=== PATIENT | male | born 1990 | race Caucasian/White ===

== ENCOUNTER 2016-06-21 12:13 | Inpatient (IN) | payer MEDICAID ==
[~2016-06-21] VITALS: Ht 180.3 cm; Wt 61.9 kg
[~2016-06-21 12:13] MED LIST: AUGMENTIN1 TA2 PO; AURALGAN OT10 ML/BOT OT; BACTRIM DS 8001 TAB PO; CIPRO 500MG TA500 MG PO; CLARITIN 10MG T10 MG PO; CORTISPORIN OTI10 M1 OT; HYDROCODONE1 TABLET PO; IBUPROFEN800 MG PO; LORTAB 5/500 501 TAB PO; MOTRIN 600MG.600 MG PO; NAPROSYN 500MG500 MG PO; NOMEDS *; NOMEDS XX; NORCO 325 MG-51 TAB PO; PRILOSEC OTC20 MG PO; PYRIDIUM 200MG200 MG PO; STRATTERA10 MG PO; TYLENOL ES500 MG PO; TYLENOL W/CODEI1 TA2 PO; TYLENOL WITH CO1 TA1 PO
[2016-06-21 12:19] VITALS: BP 131/69
--- NOTE | 2016-06-21 13:10 | Emergency Room Report ---
History of Present Illness Time Seen by MD Roca Presenting Problem in Triage Pt arrived:Wheelchair Presenting Problem:REPORTS HE HAD A SORE AREA ON HIS R LEG ON THE , AND NOW HE REPORTS A HARD KNOT THAT IS REDENNED AND INFLAMMED. REPORTS THAT IT HURTS TO WALK Onset of symptoms date/time:/ or onset unknown for:MEDICAL HX UNKNOWN Treatment Prior to Arrival: LICENSED APPRAISER Provided by: Sepsis Risk Assessment: Temp: 98.2 B/P: 131/69 MAP: 89 Pulse: 109 Resp: 20 Recent fever? N Clinical Suspician of Infection? N Mental Status: 1 - Regular (Normal Baseline) Sepsis Risk:Low Sepsis Risk Have you (or family members/close friends) recently traveled outside the [place]? N If Yes, where/when: Have you had exposure to infectious disease within the past month? N TB? Other? Specify: Comment The patient complains of RIGHT thigh pain, firmness, and swelling for about 5 days. He says the past 2 days he ran a fever of 101 degrees. No redness. The swelling is now beginning to extend down to the distal thigh above his knee. He denies trauma or injury or unusual activity. No previous similar symptoms. ALLERGIES Coded Allergies: cefaclor (From [facility]) (06/03/15) Home Medications Reported Medications No Known Home Medications History Medical History General CAD? No Angina: Yes SC: No Hypertension? No Hyperlipidemia? Yes CHF? No DVT? No PE? No COPD? No Asthma? No Anemia? No GERD? No Gastric ulcers? No GI Bleed? No Hernia? No Thyroid Problems? No Hypothyroidism? No CVA? No Seizures? No Diabetes? No Renal Insuffiency? No End Stage Renal Disease? No UTI? No Stones? No BPH? No GB Disease: No Nephritic Syndrome? No Asplenia? No Hepatitis? No Sickle Cell Disease? No Arthritis? No Migraines? No Cataracts? No Glaucoma? No MRSA? Yes HIV? No TB? No Anxiety? No Depression? No Cancer? No More? No Immunization Hx DT/Tetanus 1-4 YRS Surgical Hx Previous Surgery?Y TONSILLECTOMY I&D OF ARM PIT STAPH Social History Smoking Hx Smoker: Current Every Day Smoker Tobacco: Yes Type Cigarettes Packs/day < 1 Pack Alcohol Alcohol: No Review of Systems All Other Systems Reviewed and Negative Constitutional fever Musculoskeletal see HPI Physical Exam Vital Signs Vital Signs Date Time Temp Pulse Resp B/P Pulse O2 O2 Flow FiO2 Ox Delivery Rate 06/21 1551 18 06/21 1551 98.5 89 18 115/77 96 06/21 1519 98.5 89 20 115/77 96 06/21 1417 98.2 100 18 133/79 96 06/21 1333 108 18 126/69 97 06/21 1322 18 06/21 1221 98.2 109 20 131/69 99 06/21 1219 98.1 104 16 131/69 96 General Appearance normal appearance Eye Exam - bilateral eye normal exam, bilateral eye PERRL, bilateral eye EOMI Ear, Nose, Throat hearing grossly normal, normal ENT inspection Neck normal inspection, non-tender, supple, full range of motion Respiratory Status No: respiratory distress. Lung Sounds bilateral: normal breath sounds, lungs clear. Cardiovascular normal peripheral pulses Peripheral Pulses Pulses normal Yes Gastrointestinal normal bowel sounds, normal exam, non tender, soft, no organomegaly Back normal inspection, no CVA tenderness, no vertebral tenderness Extremities tenderness of RIGHT thigh, predominantly mid to proximal. The tenderness is lateral in this area is firm to touch in his RIGHT thigh is enlarged compared to the LEFT. No discrete mass. No fluctuance. No erythema., dorsalis pedis pulse 2+. Normal sensory and motor distally., no effusion or tenderness of the knee joint. Neurologic alert Reflexes Reflexes normal Yes Mental status normal mood/affect Skin intact, normal color, warm/dry Medical Decision Making LABS/Meds/Orders Pt receiving controlled substance in ED? No Results/Orders Laboratory Tests 06/21/16 1330: Sodium 138, Potassium 3.8, Chloride 102, Carbon Dioxide 30, BUN 5 L, Creatinine 0.7 L, Estimated Creat Clear 145, Estimated GFR (MDRD) 137, Glucose 87, Calcium 9.0, Total Bilirubin 0.6, AST 20, ALT 16, Alkaline Phosphatase 95, Total Protein 8.3 H, Albumin 3.5, Globulin 4.8 H, Albumin/Globulin Ratio 0.7 L, D-Dimer 638 *H, WBC 13.3 H, RBC 4.68, Hgb 14.4, Hct 42.4, MCV 90.6, RDW 13.1, Plt Count 218 , MPV 8.5, Gran % 69.4, Gran # 9.2 H, Lymphocytes % 22.7, Monocytes % 5.5, Eosinophils % 1.8, Basophils % 0.5, Lymphocytes # 3.0, Monocytes # 0.7, Eosinophils # 0.2, Basophils # 0.1, PUBS MCHC 33.9, MCH 30.7 Current Medication Orders Sig/Heri Start time Last Medication Dose Route Stop Time Status Admin Morphine Sulfate 0 .STK-MED ONE 06/21 1550 DC .ROUTE Clindamycin Phosphate 600 MG Q6H 06/21 1545 UNV Sodium Chloride 100 ML IV Influenza Virus 0.5 ML PRN PRN 06/21 1545 UNV Vaccine Quadrival IM Iopamidol 100 ML ONCE ONE 06/21 1545 UNV 06/21 IV 06/21 1546 1535 Iopamidol 20 ML ONCE ONE 06/21 1545 UNV 06/21 IV 06/21 1546 1535 Miscellaneous 1 EACH CONSULT PHARMACY 06/21 1545 UNV 06/21 Information * 06/22 0341 1609 Morphine Sulfate 2 MG Q2HP PRN 06/21 1545 UNV IV Morphine Sulfate 4 MG ONCE ONE 06/21 1545 DC 06/21 IV 06/21 1546 1551 Nicotine 21 MG DAILYP PRN 06/21 1545 UNV TD Ondansetron HCl 4 MG Q6HP PRN 06/21 1545 UNV IV Ondansetron HCl 4 MG ONCE ONE 06/21 1545 DC 06/21 IV 06/21 1546 1551 Sodium Chloride 20 ML ONCE ONE 06/21 1545 UNV 06/21 IV 06/21 1546 1535 Sodium Chloride 20 ML ONCE ONE 06/21 1545 UNV 06/21 IV 06/21 1546 1535 Sodium Chloride 10 ML PRN PRN 06/21 1545 UNV 06/21 IV 06/21 1705 1535 Sodium Chloride 10 ML PRN PRN 06/21 1545 UNV IV Vancomycin HCl 1,500 MG ONCE ONE 06/21 1545 CKDr 06/21 Sodium Chloride 250 ML IV 06/21 1744 1539 Sodium Chloride 250 ML .STK-MED ONE 06/21 1536 DC IV Vancomycin HCl 0 .STK-MED ONE 06/21 1535 DC .ROUTE Clindamycin Phosphate 600 MG ONCE ONE 06/21 1530 AC 06/21 Sodium Chloride 100 ML IV 06/21 1631 1528 Miscellaneous 1 EACH CONSULT PHARMACY 06/21 1530 AC 06/21 Information * 06/22 0316 1537 Clindamycin Phosphate 0 .STK-MED ONE 06/21 1524 DC .ROUTE Sodium Chloride 100 ML .STK-MED ONE 06/21 1524 DC IV Ketorolac 0 .STK-MED ONE 06/21 1335 DC Tromethamine .ROUTE Ketorolac 30 MG ONCE ONE 06/21 1315 DC 06/21 Tromethamine IV 06/21 1316 1322 Sodium Chloride 10 ML PRN PRN 06/21 1315 AC IV 06/22 1314 Orders Procedure Date/time Status DIET-REGULAR ( TOLERATED) 06/21 D Active PHARMACIST CONSULT 06/21 1541 Active Decision to admit 06/[address] SCAN REQ 06/21 1315 Complete IV SALINE LOCK 06/21 1315 Active CULTURE, BLOOD 06/21 1315 Active LACTIC ACID 06/21 1315 Active D-DIMER 06/21 1315 Complete CBC WITH AUTO DIFF 06/21 1315 Complete CHEM 12 PROFILE 06/21 1315 Complete ADMIT PATIENT 06/21 UNK Active VITAL SIGNS 06/21 UNK Active POM NURSE ARMANDO OLSONValentina ORDER 06/21 UNK Active IV SALINE LOCK 06/21 UNK Active GEN NSG/PT REQ (NOT FOR MEDS!) 06/21 UNK Active CODE STATUS 06/21 UNK Active PATIENT ACTIVITY ORDER 06/21 UNK Active XRAY/CT/US XRAY/CT/US CT RIGHT thigh CT interpretation by discussed w/radiologist Comment 2.58 cm fluid density enhancing mass in the RIGHT thigh between the vastus lateralis muscle and the femur, probable abscess. Progress - 3:15 PM: Case discussed with Dr. Mortensen. He will admit. Intravenous vancomycin and clindamycin. Departure Departure Disposition Still a Patient Clinical Impression Primary Impression: Abscess of right thigh Condition STABLE Referrals Sloan RAY,Damon Payne (Family) Prescriptions Current Visit Scripts No Known Home Medications ED Critical Care Critical Care No at 1610
[2016-06-21 13:43] LABS: HEMOGLOBIN 14.4 g/dL (14.1-18.0); LYMPH % 22.7 % (10-50)
--- NOTE | 2016-06-21 16:04 | RADIOLOGY REPORT PS360 ---
[id number]/CONTRAST COMPARISON: None HISTORY: Pain and swelling right thigh, fever, no trauma TECHNIQUE: Multiple axial scans of the right thigh were obtained following injection of IV contrast. Sagittal and coronal reformatted images were evaluated as well. FINDINGS: There is hypodense lesion in the mid thigh sitting just inside the vastus lateralis muscle measuring 8.1 cm x 2.5 cm and showing a prominently enhancing rim. The CT number is 21 consistent with almost surely an abscess. There is no periosteal reaction of the adjacent femur. The remainder of the muscular anatomy of the thigh is unremarkable. IMPRESSION: Probable abscess deep within the mid thigh as noted, suggest clinical correlation for possibly IV drug use.
[2016-06-21 16:20] VITALS: BP 117/68
[2016-06-21 16:21] VITALS: BP 117/68
[2016-06-21 19:54] VITALS: BP 146/69
[2016-06-21 21:42] VITALS: BP 146/69
[2016-06-22 04:33] VITALS: BP 111/66
--- NOTE | 2016-06-22 07:13 | PHARMACY CLINIC NOTE ---
Patient Demographics Patient Demographics Admission date: 06/21/16 Date: 06/22/16 Time: 0712 Allergies Coded Allergies: cefaclor (From [facility]) (06/03/15) HEIGHT- FT: 5 IN: 11.00 K.859 VTE General Information Labs: Laboratory Tests 06/21 1330 Hematology Hgb (14.1 - 18.0 g/dL) 14.4 Hct (42.0 - 52.0 %) 42.4 Plt Count (142 - 424 K/mm3) 218 Disclaimer The following section includes nursing documentation that has been pulled in for pharmacy review. Patient's VTE score: 1 Patient's VTE Risk: VERY LOW RISK Clinical trial participant? No VTE prophylaxis [id number] VTE prophylaxis ordered? Yes Type of prophylaxis/treatment: ARMANDO at 0713
[2016-06-22 08:07] VITALS: BP 108/60
--- NOTE | 2016-06-22 08:16 | ACUTE CARE PROGRESS NOTE (QUA) ---
Progress note: - See H&P at 0893
--- NOTE | 2016-06-22 08:16 | ACUTE CARE PROGRESS NOTE (QUA) ---
Progress note: - See H&P at 0845
--- NOTE | 2016-06-22 08:16 | HISTORY AND PHYSICAL REPORT ---
History of Present Illness Chief Complaint: Tender RIGHT leg History of Present Illness: Patient is a 26-year-old white male. He presented to the emergency department yesterday afternoon with approximately 4 day history of swelling and tender RIGHT thigh. Patient describes some subjective fevers. He does state that a couple of months ago he may have struck the area on furniture sustaining minor trauma. Physical examination in the emergency department was rather unimpressive. He therefore underwent CT scan. This revealed findings of deep thigh abscess. Surgery was contacted. Plan was made for admission and intravenous antibiotics with possible plan for surgical drainage. Past Medical History Denies: CAD, diabetes mellitus. Surgical History Previous Surgery?Y TONSILLECTOMY I&D OF ARM PIT STAPH Allergies Coded Allergies: [facility] ([facility] (06/03/15) Medications: Reported Medications No Known Home Medications Smoking Hx Tobacco: Yes Smoker: Current Every Day Smoker Type: Cigarettes Packs/day: < 1 Pack Are you/the child exposed to second-hand smoke: Yes Alcohol Alcohol: No Hx of Drug Use Drug Use? No Review of Systems Constitutional Positive for: chills. Skin No: ecchymosis. Immune/allergy Positive for: allergy. Eyes No: vision loss. ENT No: hearing loss. Respiratory No: shortness of air. Cardiovascular No: chest pain. GI No: abdomen. (male) No: hematuria. Musculoskeletal Positive for: extremity pain, extremity swelling. Heme No: bleeding. Endocrine No: dyspnea. Neurological No: seizure. Psychiatric No: agitation. Physical Exam Exam General appearance no acute distress Respiratory clear to auscultation Cardiovascular normal heart sounds Extremities edema, warm Findings/Data On examination he has no evidence of any cellulitis or erythema. He has trace edema of the RIGHT thigh and knee area. In the RIGHT anterior lateral thigh there is some firmness. This no fluctuance. Dx/assessment/plan Problem List 1. Abscess of right thigh Code status: full code Plan: This is quite an unusual presentation and finding. I will review his CT scan. Due to the lack of findings of superficial infection or abscess and due to the fact that this appears to be very deep to the muscles and near the femur I will consult orthopedic surgery regarding opinion on management. He could require drainage by radiographic guidance. However, there is also the possibility that this may resolve with conservative nonoperative management with antibiotics. at 0815
[2016-06-22 08:50] LABS: HEMOGLOBIN 13.4 g/dL (14.1-18.0); LYMPH # 2.4 K/mm3 (0.7-4.5); LYMPH % 26.7 % (10-50)
--- NOTE | 2016-06-22 12:06 | CONSULT NOTE ---
Pharmacokinetic Consult Date of consult: 06/22/16 Time of consult: 1159 Referring provider: DR. YOON Reason for consult: VANCOMYCIN DOSING Allergies: Coded Allergies: cefaclor (From [facility]) (06/03/15) Home Medications: Reported Medications No Known Home Medications Height (feet): 5 Height (inches): 11.00 Medical History: CAD? No Angina: No CO: No Hypertension? No Hyperlipidemia? Yes CHF? No DVT? No PE? No COPD? No Asthma? No Anemia? No GERD? Yes Gastric ulcers? No GI Bleed? No Hernia? No Thyroid Problems? No Hypothyroidism? No CVA? No Seizures? No Diabetes? No Renal Insuffiency? No UTI? No Stones? No BPH? No GB Disease: Yes Nephritic Syndrome? No Asplenia? No Hepatitis? No Sickle Cell Disease? No Arthritis? No Migraines? No Cataracts? No Glaucoma? No MRSA? Yes HIV? No TB? No Anxiety? No Depression? No Cancer? No More? No Labs: Laboratory Tests 06/22/16 0830: D-Dimer 677 *H, WBC 8.9, RBC 4.29 L, Hgb 13.4 L, Hct 39.0 L, MCV 90.9, RDW 13.4, Plt Count 187, MPV 8.7, Gran % 62.1, Gran # 5.6, Lymphocytes % 26.7, Monocytes % 7.2, Eosinophils % 3.6, Basophils % 0.5, Lymphocytes # 2.4, Monocytes # 0.6, Eosinophils # 0.3, Basophils # 0.1, PUBS MCHC 34.3, MCH 31.2 06/21/16 1720: Lactic Acid 1.3 06/21/16 1330: Sodium 138, Potassium 3.8, Chloride 102, Carbon Dioxide 30, BUN 5 L, Creatinine 0.7 L, Estimated Creat Clear 145, Estimated GFR (MDRD) 137, Glucose 87, Calcium 9.0, Total Bilirubin 0.6, AST 20, ALT 16, Alkaline Phosphatase 95, Total Protein 8.3 H, Albumin 3.5, Globulin 4.8 H, Albumin/Globulin Ratio 0.7 L, D-Dimer 638 *H, WBC 13.3 H, RBC 4.68, Hgb 14.4, Hct 42.4, MCV 90.6, RDW 13.1, Plt Count 218 , MPV 8.5, Gran % 69.4, Gran # 9.2 H, Lymphocytes % 22.7, Monocytes % 5.5, Eosinophils % 1.8, Basophils % 0.5, Lymphocytes # 3.0, Monocytes # 0.7, Eosinophils # 0.2, Basophils # 0.1, PUBS MCHC 33.9, MCH 30.7 Microbiology 06/21 1329 BLOOD: Anaerobic Blood Culture - RECD 06/21 1329 BLOOD: Aerobic Blood Culture - RECD 06/21 1329 BLOOD: Anaerobic Blood Culture - RECD 06/21 1329 BLOOD: Aerobic Blood Culture - RECD Problem List: 1. Abscess of right thigh Plan: BASED ON PATIENT FACTORS, RECOMMEND PATIENT CONTINUE WITH VANCOMYCIN 1250 MG Q8H AT THIS TIME. PATIENT RECEIVED ONE TIME DOSE OF VANCOMYCIN 1500 MG IN ER OVERNIGHT WELL. WILL OBTAIN TROUGH LEVEL PRIOR TO NEXT DOSE AT 1700 THIS AFTERNOON. PHARMACY WILL FOLLOW DAILY AND ADJUST APPROPRIATE. ZACHERY MILES PHARMD at 1205
--- NOTE | 2016-06-22 14:00 | CONSULT NOTE ---
Consultation findings: Referring physician: Dr. Mortensen Date of examination: 06/22/16 Time of examination: 1322 Exam findings: Patient is a 26-year-old male who is been hospitalized one day. He states that he has a history of RIGHT thigh pain causes unknown. He denies trauma but feels that he may have bumped the RIGHT leg around 2 months ago but is not sure. 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 He states he did not inject the RIGHT leg or thigh ever but uses his LEFT arm as an injection site. 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 He notes pain when he attempts to walk or lift the RIGHT leg and is noted thigh swelling. The has questionable history of having had febrile episodes over the past few days. He does state that he feels improved after being on antibiotics for 1 day. Previously been seen by Dr. Mortensen at this admission. Examination shows an alert cooperative young gentleman lying in no apparent distress. He has noticeable increase in the RIGHT thigh size and mild tenderness to palpation along the lateral aspect of the RIGHT thigh midway between the hip and the knee. There is no fluctuance, no cellulitis, no erythema or streaking. No lymphadenopathy is noted. He is fully sensate in the RIGHT foot and pedal pulses are intact. His CT scan is been reviewed with Dr. Kitchen and I agree that aspiration under ultrasound may be indicated to obtain a sample of the fluid and hopefully during this collection. Dr. Kitchen will attempt this later today. In the meantime, we will have the patient take a regular diet. If the fluid proves to be hematoma or seroma then no surgery would be indicated. If the fluid proved to be purulent and radiology successfully draining the majority of it and lavaging it, further treatment with antibiotics may allow this to resolve. If it fails to resolve or fluid specimen cannot be obtained, then incision and drainage would be indicated. Impression: Fluid collection RIGHT thigh Recommendations: As above at 1400
[2016-06-22 15:55] VITALS: BP 107/57
[2016-06-22 19:50] VITALS: BP 115/60
[2016-06-22 20:40] VITALS: BP 115/60
[2016-06-23 04:07] VITALS: BP 96/52
--- NOTE | 2016-06-23 07:26 | SURGEON PROGRESS NOTE ---
Subjective data Subjective data: BOO YU is a 26 M .Patient denies complaint of nausea and vomitting.He reports his last pain level as 0 on a 0-10 pain scale. Patient a bit emotionally distraught this morning due to increasing pain and discomfort overnight. Assessment findings Assessment Exam General appearance: normal appearance, alert, agitated Extremities: edema, Tender Patient plan Plan: Antibiotics Additional data: Cultures pending from us guided aspiration. Discussed with Dr. Farrar yesterday. May require operative evacuation of presumed abscessed hematoma. at 6335
--- NOTE | 2016-06-23 07:42 | RADIOLOGY REPORT PS360 ---
US EXTREMITIES RT COMPLETE, FNA/W GUIDANCE, US CYST ASPIRATION right thigh ORDERING PHYSICIAN : MD Dr. Charan Villegas PATIENT AGE: 26 years GENDER: Male INDICATION: HEMATOMA VS ABSCESS Palpable Thigh mass as seen on recent CT TECHNIQUE ......... ULTRASOUND RIGHT THIGH...... Findings: Initial ultrasound does reveal a large elongated very thick echogenic fluid collection in the deep right thigh overlying bone.. Patient was tender here. On CT this measured over 8 cm length] entirety. With ultrasound we measuring at least 6.5 cm in length but the large area extends beyond field of view.. 2.5 cm AP. Scanning was performed by LORETTA as well as Dr. Kitchen and identified, evaluating and localizing this mass to determine best approach for aspiration ... ULTRASOUND GUIDED 18-GAUGE SPINAL ASPIRATION.... . Findings particularly conscious sterile preparation and shaving a skin we entered at the inferior aspect of the mass. We visualize the needle passing into the thick fluid collection. We were initially able to withdraw up to 12-15 cc of bloody pus material. Then I irrigated cautiously with sterile saline and was able to withdraw additional 5 -10 cc. However we continued to encounter for a thick material which would not aspirate. Question if this could reflect underlying clot. Patient was moderately tender IMPRESSION Very thick fluid collection c/w large abscess identified deep right thigh laterally. Corresponds with CT findings-. I was able to a withdrawn a total ~ 15-20 cc of thick bloody pus fluid using 18-gauge spinal needle.. Material sent to laboratory for evaluation. Still a large amount of very thick material remains within this collection, too thick to aspirate further even after limited cautious sterile saline irrigation in attempt to do so , as suggested per Dr. li
[2016-06-23 07:53] VITALS: BP 108/57
--- NOTE | 2016-06-23 08:39 | CONSULT NOTE ---
Pharmacokinetic Consult Date of consult: 06/23/16 Time of consult: 0836 Referring provider: DR. YOON Reason for consult: VANCOMYCIN TROUGH LEVEL Allergies: Coded Allergies: cefaclor (From [facility]) (06/03/15) Home Medications: Reported Medications No Known Home Medications Height (feet): 5 Height (inches): 11.00 Medical History: CAD? No Angina: No NV: No Hypertension? No Hyperlipidemia? Yes CHF? No DVT? No PE? No COPD? No Asthma? No Anemia? No GERD? Yes Gastric ulcers? No GI Bleed? No Hernia? No Thyroid Problems? No Hypothyroidism? No CVA? No Seizures? No Diabetes? No Renal Insuffiency? No UTI? No Stones? No BPH? No GB Disease: Yes Nephritic Syndrome? No Asplenia? No Hepatitis? No Sickle Cell Disease? No Arthritis? No Migraines? No Cataracts? No Glaucoma? No MRSA? Yes HIV? No TB? No Anxiety? No Depression? No Cancer? No More? No Labs: Laboratory Tests 06/22/16 1633: Vancomycin Trough 10.3 H Problem List: 1. Abscess of right thigh Plan: BASED ON VANCOMYCIN TROUGH LEVEL AND PATIENT FACTORS, RECOMMEND CONTINUING VANCOMYCIN 1250 MG IV Q8H. PHARMACY WILL CONTINUE TO MONITOR DAILY AND ADJUST APPROPRIATE. at 0813
--- NOTE | 2016-06-23 08:39 | CONSULT NOTE ---
Pharmacokinetic Consult Date of consult: 06/23/16 Time of consult: 0836 Referring provider: DR. YOON Reason for consult: VANCOMYCIN TROUGH LEVEL Allergies: Coded Allergies: cefaclor (From [facility]) (06/03/15) Home Medications: Reported Medications No Known Home Medications Height (feet): 5 Height (inches): 11.00 Medical History: CAD? No Angina: No MA: No Hypertension? No Hyperlipidemia? Yes CHF? No DVT? No PE? No COPD? No Asthma? No Anemia? No GERD? Yes Gastric ulcers? No GI Bleed? No Hernia? No Thyroid Problems? No Hypothyroidism? No CVA? No Seizures? No Diabetes? No Renal Insuffiency? No UTI? No Stones? No BPH? No GB Disease: Yes Nephritic Syndrome? No Asplenia? No Hepatitis? No Sickle Cell Disease? No Arthritis? No Migraines? No Cataracts? No Glaucoma? No MRSA? Yes HIV? No TB? No Anxiety? No Depression? No Cancer? No More? No Labs: Laboratory Tests 06/22/16 1633: Vancomycin Trough 10.3 H Problem List: 1. Abscess of right thigh Plan: BASED ON VANCOMYCIN TROUGH LEVEL AND PATIENT FACTORS, RECOMMEND CONTINUING VANCOMYCIN 1250 MG IV Q8H. PHARMACY WILL CONTINUE TO MONITOR DAILY AND ADJUST APPROPRIATE. at 0885
--- NOTE | 2016-06-23 13:41 | ACUTE CARE PROGRESS NOTE ---
Progress note Date: 06/23/16 Assessment: Notes decreased tension in the thigh and less superficial edema. No erythema no cellulitis. Continues to have pain though... Case discussed with Dr. milagro muro. Impression: 1. Abscess of right thigh Plan: At this point, we'll give the patient another 18-24 hours to see if he improves following the aspiration. If he is continuing to have significant pain tomorrow, going to the operating room for I and D would be indicated given the ultrasound findings as described by Dr. Kitchen of retention of part of the material. This will likely be able to be accomplished through a lateral incision. We'll keep the patient nothing by mouth tonight and anticipate possible I and D tomorrow... This and benefits of the procedure as well as nonsurgical options discussed with the patient in detail. Patient agrees with the plan as does Dr. Mortensen at 1340
[2016-06-23 16:07] VITALS: BP 123/73
[2016-06-23 19:39] VITALS: BP 130/77
[2016-06-24] VITALS (15 sets, daily range): BP systolic 87–129; BP diastolic 43–82
--- NOTE | 2016-06-24 10:28 | ACUTE CARE PROGRESS NOTE ---
Progress note Date: 06/24/16 Assessment: Patient is still having RIGHT thigh pain. No cellulitis or erythema. No adenopathy. Aspirate culture and sensitivity results so MRSA area.... Note the laboratory report as below > BODY FLUID CULTURE Final 06/24/16-0637 PRELIMINARY: BETA HEMOLYTIC CATALASE POSITVE COAGG POSITIVE STAPH AUREUS, SENSITIVITES SOON TO FOLLOW BETA LACTAMASE POSITIVE Organism 1 STAPHYLOCOCCUS AUREUS 1. STAPHYLOCOCCUS AUREUS RX AB M.I.C ROUTE COST I ------ -- --------- ----- ------ TRIMETH/SULFAMETH (BACTRIM) S <=10 CLINDAMYCIN S <=0.25 ERYTHROMYCIN S <=0.25 GENTAMICIN S <=0.5 LEVOFLOXACIN R <=0.12 OXACILLIN R >=4 BENZYLPENICILLIN R >=0.5 RIFAMPIN S <=0.5 TETRACYCLINE S <=1 VANCOMYCIN S 1 NOTIFIED MIRELLA THIS IS METHICILLIN RESISTANT STAPH AUREUS CALL MRSA RESULTS TO CAREGIVER Impression: 1. Abscess of right thigh Plan: Patient continues to be tender to palpation. Given this is MRSA and incomplete aspiration documented by Dr. Kitchen and radiology, and the patient still having pain, incision irrigation debridement not indicated. We'll plan on taking the patient to the operating room later today. I discussed the risks and benefits of the procedure explained nonsurgical alternatives. Patient understands the risks and desires to proceed. In particular, he understands that additional surgery may be required. He understands that potential damage to nerves and blood vessels and the bone itself are possible. He understands the risk is possible spread of the infection. He understands that in a worse case scenario, he could lose used the leg to lose the leg or even lose his life. at 7056
--- NOTE | 2016-06-24 13:09 | SURGEON PROGRESS NOTE ---
Subjective data Subjective data: BOO YU is a 26 M .Patient denies complaint of nausea and vomitting.He reports his last pain level as 0 on a 0-10 pain scale. Patient still c/o thigh pain. Somewhat improved this afternoon. Assessment findings Assessment Exam General appearance: normal appearance, alert Extremities: edema Patient plan Plan: Antibiotics Additional data: Ortho to perform I&D today. Antibiotic Stewardship (2) Current Culture Results Microbiology 06/22 UNK THIGH: Body Fluid Culture - COMP STAPHYLOCOCCUS AUREUS 06/21 1330 BLOOD: Anaerobic Blood Culture - RES 06/21 1330 BLOOD: Aerobic Blood Culture - RES Infxn that will respond? Yes Right drug,dose,and route? Yes More targeted antbx? No How long atbx needed? 10 at 1308
--- NOTE | 2016-06-24 20:35 | ACUTE CARE PROGRESS NOTE ---
Progress note Date: 06/24/16 Assessment: Patient is a 26-year-old male who underwent incision and drainage of a deep- seated RIGHT thigh abscess today by Dr. Farrar. I was called by the nursing staff this evening as patient was complaining of severe RIGHT thigh pain in spite of narcotic analgesics. He is complaining of pain over the middle and distal thigh up to the knee joint. No history of any pain below the knee. No history of any distal tingling or numbness. He apparently went downstairs earlier in the evening and also was able to walk. He is getting 2 mg of IV morphine when necessary every 2 hours for breakthrough pain and also getting oral Lortab 5/325, 1-2 tablets when necessary every 4 artery. No history of any long-term narcotic usage prior to this hospitalization. He mentioned that he was taking Percocet in March following multiple dental procedures. On examination he is alert and oriented 3. He is in no apparent distress. He has been comfortable and cooperative throughout. His vitals are stable. Heart- regular rate and rhythm. No acute respiratory distress. Lungs are clear to auscultation bilaterally. On examination of his RIGHT thigh, the dressings are clean dry and intact. He is tender over the middle of the RIGHT thigh. The thigh is soft and there is no evidence of any induration or excessive swelling. He has fairly good range of knee movements. Distal neurovascular status is intact. No evidence of any features suggestive of compartment syndrome. Impression: 1. Abscess of right thigh Plan: I reviewed his medication and discussed pain management with him. I have recommended - Percocet 5/325, 1-2 tablets when necessary every 4-6 hours for pain, - continue IV morphine as ordered when necessary for breakthrough pain, - discontinue Lortab and - add ibuprofen 800 mg by mouth every 8 hours after food Antibiotic Stewardship (2) Infxn that will respond? Yes Right drug,dose,and route? Yes More targeted antbx? No at 2037
[2016-06-25 03:27] VITALS: BP 114/63
[2016-06-25 07:29] VITALS: BP 101/55
--- NOTE | 2016-06-25 09:50 | SURGEON PROGRESS NOTE ---
Subjective data Subjective data: BOO YU is a 26 M .Patient denies complaint of nausea and vomitting.He reports his last pain level as 8 on a 0-10 pain scale. Patient taken to OR yesterday by orthopedic surgery and had washout of deep thigh abscess. Patient complains of less deep pain and has better range of motion. Some discomfort from incision but overall improved. Assessment findings Assessment Exam General appearance: normal appearance, alert Comment: Superficial dressing changed. Serosanguineous drainage present. Patient plan Plan: Antibiotics Additional data: Discuss wound care with orthopedic surgery. POssible DC tomorrow on oral Zyvox. Antibiotic Stewardship (2) Infxn that will respond? Yes Right drug,dose,and route? Yes More targeted antbx? No at 0914
--- NOTE | 2016-06-25 13:40 | ACUTE CARE PROGRESS NOTE ---
Progress note Date: 06/25/16 Assessment: Stop day number 1 status post I and D of RIGHT thigh abscess. Patient seen at approximately 0900 Patient awake, states pain significantly decreased since surgery. Cultures from yesterday are still pending. Previous cultures growing MRSA. Sensate to light touch RIGHT lower extremity and pedal pulses intact. No evident complications Discussed findings with patient. Plan to leave dressing on and have changed later today. If no noticeable reaccumulation or drainage, could possibly be discharged in the morning. We'll discuss with Dr. Mortensen. Conversation with Dr. Mortensen later in morning. He has already remove dressing and noted no Ilia drains. Attempted to see patient at 1335 however he has not in the room. Nurses report he has exited the building. Attempts to locate patient unsuccessful Impression: 1. Abscess of right thigh Plan: At this stage, we will continue the vancomycin and I will see the patient and the morning. Will change dressing in the a.m. and reassess. Antibiotic Stewardship (2) Infxn that will respond? Yes Right drug,dose,and route? Yes More targeted antbx? No at 1331
[2016-06-25 16:11] VITALS: BP 123/65
[2016-06-25 19:35] VITALS: BP 123/70
[2016-06-25 19:44] VITALS: BP 123/70
[2016-06-26 04:55] VITALS: BP 111/71
[2016-06-26 07:41] VITALS: BP 118/66
--- NOTE | 2016-06-26 08:17 | SURGEON PROGRESS NOTE ---
Subjective data Subjective data: BOO YU is a 26 M .Patient denies complaint of nausea and vomitting.He reports his last pain level as 5 on a 0-10 pain scale. Patient feels well without complaints. Assessment findings Assessment Exam General appearance: normal appearance, alert Extremities: full range of motion Comment: Incision clean. Some serosanguineous drainage. Patient plan Plan: Antibiotics Additional data: Possible DC home today pending orthopedic surgery disposition. Possible outpatient Zyvox for 10 days for antibiotic coverage. Antibiotic Stewardship (2) Infxn that will respond? Yes Right drug,dose,and route? Yes More targeted antbx? No at 0817
--- NOTE | 2016-06-26 09:04 | ACUTE CARE PROGRESS NOTE ---
Progress note Date: 06/26/16 Assessment: Awake, alert, no apparent distress. Minimal pain reported. Wound area without erythema or cellulitis. Low viscosity drainage. Impression: 1. Abscess of right thigh Plan: Reapply dressing. From an orthopaedic standpoint, he could be discharged today and I agree with Zyvox oral antibiotic of choice orally. He will need a dressing changes likely twice daily and could be taught to change these himself. I've instructed him to spend time with the lateral aspect of the thigh in a dependent position to promote drainage. If he goes home today, follow-up next week would be indicated. Antibiotic Stewardship (2) Infxn that will respond? Yes Right drug,dose,and route? Yes More targeted antbx? No at 0220
[2016-06-26 09:53] VITALS: BP 118/66
[2016-06-26] MEDS ORDERED: PERCOCET1 TAB PO (12:35)
[2016-06-26] MEDS ORDERED: CUBICIN 500 MG500 MG IV (12:40)
--- NOTE | 2016-06-26 12:53 | DISCHARGE SUMMARY STANDARD ---
Demographics Admit date: 06/21/16 Discharge date: 06/26/16 History of present illness History of present illness Patient is a 26-year-old white male. He presented to the emergency department in the afternoon of 06/21/16 with progressive RIGHT lower extremity pain and discomfort. He was seen and evaluated in the emergency department. He had some edema of the RIGHT lower extremity. He denies any injection or obvious injury. On examination at that time the overlying skin was unremarkable without erythema. Workup in the emergency department included CT scan with contrast which revealed findings consistent with deep thigh abscess deep to the vastus lateralis near the femur. Surgery was contacted. Recommendations were made for admission. Hospital Course Hospital Course: Patient was admitted. He was placed on vancomycin and clindamycin. His white blood cell count did improve. With initiation of IV antibiotics the edema improved. He underwent ultrasound after the case was discussed with radiology. He had ultrasound-guided aspiration. Several cc of bloody purulent fluid was able to be aspirated. This was sent for culture. Due to the unusual nature of the abscess and due to his a depth below the quadriceps muscle orthopedic surgery was consult. Ultimately the cultures returned as MRSA. Clindamycin was discontinued and he was continued on vancomycin. He was taken to the operating room by orthopedic surgery on 06/24/16. He underwent Open incision and drainage of this deep abscess with placement of [place] drains.please see operative report by Dr. Farrar. the day after surgery he had some ongoing serosanguineous drainage. His [place] drains were removed. Arrangements are being made for discharge. Given the culture is it was felt that he would require MRSA coverage. Ultimately due to insurance failure to improve oral Linezolid he was discharged on outpatient intravenous daptomycin. Discharge diagnoses Problem List 1. Abscess of right thigh Medications Medications: Discharge meds are as noted. Comment: He is given a prescription for Percocet (# 21). Arrangements are made for intravenous daptomycin infusion once daily for 7 days. Follow up Follow up in office in: 6 DAYS with: Mikel Farrar MD at [phone]
--- NOTE | 2016-06-26 13:22 | CONSULT NOTE ---
Pharmacokinetic Consult Date of consult: 06/26/16 Time of consult: 1316 Referring provider: DR. YOON Reason for consult: VANCOMYCIN TROUGH LEVEL Allergies: Coded Allergies: cefaclor (From [facility]) (SWELLING OF THROAT/HIVES 07/30/16) Home Medications: Reported Medications Clindamycin Hcl (Cleocin 300MG Capsule) 300 MG PO TID Height (feet): 5 Height (inches): 11.00 Medical History: CAD? No Angina: No [place]: No Hypertension? No Hyperlipidemia? Yes CHF? No DVT? No PE? No COPD? No Asthma? No Anemia? No GERD? Yes Gastric ulcers? No GI Bleed? No Hernia? No Thyroid Problems? No Hypothyroidism? No CVA? No Seizures? No Diabetes? No Renal Insuffiency? No UTI? No Stones? No BPH? No GB Disease: Yes Nephritic Syndrome? No Asplenia? No Hepatitis? No Sickle Cell Disease? No Arthritis? No Migraines? No Cataracts? No Glaucoma? No MRSA? Yes HIV? No TB? No Anxiety? No Depression? No Cancer? No More? No Labs: Laboratory Tests 06/26/16 0625: Sodium 140, Potassium 4.1, Chloride 106, Carbon Dioxide 31, BUN 6 L, Creatinine 0.7 L, Estimated Creat Clear 141, Estimated GFR (MDRD) 137, Glucose 79, Calcium 8.8, Vancomycin Trough 17.8 H Problem List: 1. Abscess of right thigh Plan: BASED ON VANCOMYCIN TROUGH LEVEL, RECOMMEND CONTINUING CURRENT DOSE OF VANCOMYCIN 1250 MG IV Q8H. PATIENT IS BEING DISCHARGED THIS AFTERNOON. at 0930
--- NOTE | 2016-06-26 13:22 | CONSULT NOTE ---
Pharmacokinetic Consult Date of consult: 06/26/16 Time of consult: 1316 Referring provider: DR. YOON Reason for consult: VANCOMYCIN TROUGH LEVEL Allergies: Coded Allergies: cefaclor (From [facility]) (SWELLING OF THROAT/HIVES 07/30/16) Home Medications: Reported Medications Clindamycin Hcl (Cleocin 300MG Capsule) 300 MG PO TID Height (feet): 5 Height (inches): 11.00 Medical History: CAD? No Angina: No [place]: No Hypertension? No Hyperlipidemia? Yes CHF? No DVT? No PE? No COPD? No Asthma? No Anemia? No GERD? Yes Gastric ulcers? No GI Bleed? No Hernia? No Thyroid Problems? No Hypothyroidism? No CVA? No Seizures? No Diabetes? No Renal Insuffiency? No UTI? No Stones? No BPH? No GB Disease: Yes Nephritic Syndrome? No Asplenia? No Hepatitis? No Sickle Cell Disease? No Arthritis? No Migraines? No Cataracts? No Glaucoma? No MRSA? Yes HIV? No TB? No Anxiety? No Depression? No Cancer? No More? No Labs: Laboratory Tests 06/26/16 0625: Sodium 140, Potassium 4.1, Chloride 106, Carbon Dioxide 31, BUN 6 L, Creatinine 0.7 L, Estimated Creat Clear 141, Estimated GFR (MDRD) 137, Glucose 79, Calcium 8.8, Vancomycin Trough 17.8 H Problem List: 1. Abscess of right thigh Plan: BASED ON VANCOMYCIN TROUGH LEVEL, RECOMMEND CONTINUING CURRENT DOSE OF VANCOMYCIN 1250 MG IV Q8H. PATIENT IS BEING DISCHARGED THIS AFTERNOON. at 0930
[2016-06-26 13:30] VITALS: BP 118/66
[2016-07-07] MEDS ORDERED: CLEOCIN HCL300 MG PO (13:11)
--- NOTE | 2016-07-14 16:34 | Operative Note ---
Procedure/Operative Record Date of Procedure: 06/24/16 Referring physician: Dr. Mortensen Pre-op diagnosis: Infection RIGHT thigh Post-op diagnosis: Same Procedure performed: Incision and debridement RIGHT thigh Surgeon: Mikel Farrar Anesthesia: Anesthesia was a general anesthetic Indications: This is a 26-year-old male who presents with a several day history of RIGHT thigh pain. Radiographic studies show an abscess along the lateral mid thigh. This is been aspirated under ultrasound guidance. It is failed resolve with this and antibiotics. Formal incision and debridement not is indicated Findings: The patient had a large abscess located in the vastus lateralis just lateral to the shaft of the femur. Purulent discharge was noted. Necrotic muscle was present and debrided. Description of procedure: The patient was taken to the operating room and placed on the operating room table. All bony prominences were well-padded. Under general anesthetic, the operative site was prepped and draped in the usual sterile fashion. A midline incision was made through the skin and the tissues spread. The tensor fossa liz was spread and held with retractors. The muscle fibers were spread bluntly and the abscess was located by digital palpation. A pair of tenotomy scissors was used to enter the abscess and spread it. Purulent discharge emanated and cultures and sensitivity specimens were taken. These consisted of aerobic and anaerobic cultures. These were then submitted. The abscess cavity was irrigated with normal saline for approximately 1.5 L. Necrotic muscle was encountered and sharply debrided with a number 15 blade and a curette. This was a deep abscess, just lateral to the shaft of the bone. Debrided tissue consisted of approximately 5 mL total. After thorough irrigation, the proximal and distal extensions of the incision were sutured with 2-0 nylon sutures. The central portion was LEFT open and 2 Ilia drains were placed from the abscess cavity to the surface. Dressings were applied and the patient awakened and transported to the recovery room in satisfactory condition EBL (ml): 10 Specimens: Aerobic and anaerobic cultures, 2 of each, was taken... Note is made that this is a resubmission of an original operative note submitted at the time of surgery. It is accurate to the best of my knowledge at 1635
== END 2016-06-26 13:30 | disposition home or self-care (01) | DRG 603 ==
LOC: ER 12:13 → 2ND 15:19 → ER 15:19 → 2ND 15:19
PROVIDERS: Emergency Medicine; Orthopaedic Surgery; Surgery
PROC: 0H9JXZX Drainage of Left Upper Leg Skin, External Approach, Diagnostic (ICD-10-PCS; 2016-06-22)
PROC: 0Y993ZZ Drainage of Right Lower Extremity, Percutaneous Approach (ICD-10-PCS; principal; 2016-06-24 12:00)
DX: L02.415 Cutaneous abscess of right lower limb (principal)
CPT/HCPCS: J2405; J3370; Q9967

== ENCOUNTER 2016-06-27 09:37 | Outpatient (CLI) | payer MEDICAID ==
[~2016-06-27] VITALS: Ht 180.3 cm; Wt 63.5 kg
[~2016-06-27 09:37] MED LIST changes: +CUBICIN 500 MG500 MG IV; +PERCOCET1 TAB PO
[2016-06-27 10:00] VITALS: BP 121/62
[2016-06-27 11:40] VITALS: BP 123/67
[2016-07-07] MEDS ORDERED: CLEOCIN HCL300 MG PO (13:11)
== END 2016-06-27 11:45 | disposition home or self-care (01) ==
LOC: COP 09:37
DX: L02.415 Cutaneous abscess of right lower limb (principal)
CPT/HCPCS: J0878

== ENCOUNTER 2016-06-28 08:52 | Outpatient (CLI) | payer MEDICAID ==
[2016-06-28 09:21] VITALS: BP 117/74
[2016-06-28 09:50] VITALS: BP 121/69
[2016-07-07] MEDS ORDERED: CLEOCIN HCL300 MG PO (13:11)
== END 2016-06-28 09:50 | disposition home or self-care (01) ==
LOC: COP 08:52
DX: L02.415 Cutaneous abscess of right lower limb (principal)
CPT/HCPCS: J0878

== ENCOUNTER 2016-06-29 08:50 | Outpatient (CLI) | payer MEDICAID ==
[2016-06-29 09:15] VITALS: BP 126/78
[2016-06-29 09:30] VITALS: BP 122/70
[2016-06-29 09:45] VITALS: BP 122/70
[2016-07-07] MEDS ORDERED: CLEOCIN HCL300 MG PO (13:11)
== END 2016-06-29 10:00 | disposition home or self-care (01) ==
LOC: COP 08:50
DX: L02.415 Cutaneous abscess of right lower limb (principal)
CPT/HCPCS: J0878

== ENCOUNTER 2016-07-06 09:15 | Day surgery (SDC) | payer MEDICAID ==
--- NOTE | 2016-07-06 10:20 | RADIOLOGY REPORT PS360 ---
US EXTREMITIES RT LIMITED Ultrasound right thigh ORDERING PHYSICIAN : Mikel Farrar MD PATIENT AGE: 26 years GENDER: Male INDICATION: ? Follow-up ABCESS drainage Previous abscess/hematoma evacuated and drained surgically. Now patient reports some nonspecific questionable. With drainage from drain drainage hole site. Question purulent versus serous drainage text none seen by technologist currently TECHNIQUE: Ultrasound right thigh; COMPARISON: Previous ultrasound 06/22/2016 with attempted aspiration. FINDINGS . No prominent abscess or fluid collection. However we do see a curious linear appearing area most likely residual from previous drain tube tract, versus linear area of suture material?. There is some scant, minimal fluid on either side of this nearly 2 cm linear structure. It seems to be obliquely directed upward towards the region of the previous incision for draining this region. A few other very tiny pockets of fluid 3 and 4 mm, are seen elsewhere throughout region of previous surgery. Nonspecific Minor edema throughout this region may merely reflect the recent surgery and resolving recent infection IMPRESSION: ...... 1. Interval surgical incision and drainage of large abscess right thigh by Dr. Farrar. With this The large mass is been removed, and evacuated 2. Minor observations today: .-subtle linear oblique line extending upward towards the incision, is surrounded by some scant amounts of fluid on both sides of this area. Suspect scant residual fluid along the previous ghostlike residual of prior removed drain and drainage tract - A few other scattered tiny pockets of fluid seen throughout the postsurgical region. Nonspecific at this point No large collection
--- NOTE | 2016-07-06 13:07 | Operative Note ---
Procedure/Operative Record Date of Procedure: 07/06/16 Pre-op diagnosis: abscess, infection RIGHT thigh Post-op diagnosis: Same Procedure performed: Irrigation and drainage RIGHT thigh infection Surgeon: Mikel Farrar Anesthesia: General anesthetic Indications: The patient is a 26-year-old male with a RIGHT thigh infection. He previously underwent incision and debridement. He was placed on antibiotics and has continued to have some drainage. Repeat irrigation and drainage, possible debridement, is indicated to help resolve the infection. This will also allow the wound to be packed. Description of procedure: Patient was taken to the operating room and placed in the supine position. The RIGHT lower extremity was prepped and draped in the usual sterile fashion. We first with Hibiclens followed by chlorhexidine. We noted that the patient had removed approximately all but one of the sutures himself and some remnants of the suture material remained. The remaining suture was removed prior to the prep. The old incision was opened and the tissues spread. Remainder of suture material and a [place] drain were removed. A new Ilia drain was prepared for placement. Cultures for aerobic and anaerobic specimens were taken both superficially and a second set taken deeply. The wound was irrigated copiously with bulb syringe normal saline. Palpation revealed no pockets of fluid consistent with a preoperative ultrasound. After copious irrigation, a Ilia drain is placed and the wound packed with gauze. Tails the Ilia drain in the gauze were left outside the wound. 2 sutures consisting of 2-0 nylon material were placed in vertical mattress fashion but not tied. These were tacked down with Steri-Strips for possible later closure. We then placed dressings and elastic image was placed. The patient's incision is been infiltrated with Marcaine prior to dressing application. He was then transported to the recovery room in satisfactory condition EBL (ml): 10 at 1306
[2016-07-06 16:04] VITALS: BP 118/66
[2016-07-07] MEDS ORDERED: CLEOCIN HCL300 MG PO (13:11)
== END 2016-07-06 15:40 | disposition home or self-care (01) ==
LOC: SDC 09:15 → RAD 09:15 → SDC 11:00 → 2ND 12:02 → SDC 12:02
PROVIDERS: Orthopaedic Surgery
PROC: 0J9L0ZZ Drainage of Right Upper Leg Subcutaneous Tissue and Fascia, Open Approach (ICD-10-PCS; principal; 2016-07-06 11:00)
DX: L02.415 Cutaneous abscess of right lower limb (principal)
CPT/HCPCS: J2405; J3370